=== PATIENT | female | born 1975 | race African-American/Black ===

== ENCOUNTER 2017-03-23 19:03 | Emergency (ER) | payer OTHER ==
[~2017-03-23] VITALS: Ht 170.2 cm; Wt 91.2 kg
--- NOTE | ~2017-03-23 | EKG ---
[address] [address] ELECTROCARDIOGRAM REPORT Name: JUANA VALADEZ V [id number] Admission: 03/23/17 Attend Phys: Discharge: 03/24/17 Date of : 75 Report #: [id number] THIS REPORT FOR: //name// 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
[~2017-03-23 19:03] MED LIST: ALBUTEROL2.5 MG/0.1 INH; CEFTIN 250 MG250 MG PO; CEFUROXIME500 MG PO; DIFLUCAN200 MG PO; FLOMAX0.4 MG PO; HYDROCODONE-AP1 EAC6 PO; NEXIUM40 MG PO; PREPARATION H O28 GM RC; PROCTOFOAM15 GM TP; TUCKS1 EAC1 TOP; ZESTRIL20 MG PO
[2017-03-23 21:12] LABS: URINE BLOOD NEGATIVE (Negative); URINE CLARITY CLEAR; URINE COLOR YELLOW; URINE GLUCOSE-RANDOM* NEGATIVE (Negative); URINE KETONES 1+ (Negative); URINE LEUKOCYTES-REFLEX NEGATIVE (Negative); URINE PROTEIN (DIPSTICK) 1+ (Negative); URINE SPECIFIC GRAVITY >= 1.030 (1.005-1.035)
[2017-03-23 21:15] LABS: URINE NITRITE-REFLEX POSITIVE (Negative)
[2017-03-23 21:17] LABS: ICTOTEST (BILI CONFIRMATORY) Negative (Negative); URINE BILIRUBIN NEGATIVE (Negative)
[2017-03-23 21:20] LABS: AMP/METHAMP Negative (Negative); BARBITURATES Negative (Negative); BENZODIAZEPINES Negative (Negative); COCAINE Negative (Negative); METHADONE Negative (Negative); OPIATES Negative (Negative); PCP Negative (Negative)
[2017-03-23 21:21] LABS: HYALINE CASTS 4-10 Moderate /LPF (None Seen); MUCUS 0-3 Light strn/LPF (None Seen); SQUAMOUS 4-10 Moderate /LPF (0-3); URINE RBC 0-2 Rare /HPF (0-2); URINE WBC-REFLEX 0-5 Rare /HPF (0-5)
[2017-03-23 21:22] LABS: CRYSTALS None Seen /LPF (None Seen)
[2017-03-23 23:03] LABS: ABSOLUTE NEUTROPHILS 6.8 thou/uL (1.4-8.2); BASOPHILS 0.5 % (0.0-2.0); EOSINOPHILS 2.1 % (0.0-3.0); HEMATOCRIT 27.4 % (37.0-47.0); HEMOGLOBIN 9.6 gm/dL (12.0-15.0); LYMPHOCYTES 29.5 % (24.0-44.0); MCH 48.2 pg (26.0-34.0); MCV 137.5 fL (80.0-100.0); MONOCYTES 6.4 % (1.0-8.0); PLATELET COUNT 246 thou/uL (150-400); POLYS 61.5 % (36.0-66.0); RBC 1.99 mil/uL (4.20-5.00); RDW 19.3 % (10.5-14.5); WBC 11.1 thou/uL (4.0-11.0)
[2017-03-23 23:17] LABS: ANION GAP 12 mmol/L (7-16); BUN 9 mg/dL (7-18); CALCIUM 9.4 mg/dL (8.5-10.1); CHLORIDE 100 mmol/L (98-107); CO2 26 mmol/L (21-32); CREATININE 0.8 mg/dL (0.6-1.0); GLUCOSE 89 mg/dL (74-106); SODIUM 138 mmol/L (136-145)
[2017-03-23 23:26] LABS: ALBUMIN 3.7 g/dL (3.4-5.0); LIPASE 162 U/L (73-393); MAGNESIUM 1.7 mg/dL (1.8-2.4); PHOSPHORUS 3.4 mg/dL (2.5-4.9); SGOT 89 U/L (15-37); SGPT 41 U/L (30-65); TOTAL BILIRUBIN 0.9 mg/dL (<0.1-1.0); TROPONIN-I < 0.04 ng/mL (<0.06)
[2017-03-23] MEDS ORDERED: POTASSIUM20 PO (23:58)
[2017-03-23] MEDS ORDERED: ZOFRAN ODT8 MG PO (23:59)
[2017-03-24 00:06] LABS: ANISOCYTOSIS 2+; LARGE PLATELETS RARE; MACROCYTES 2+; POLYCHROMASIA OCCASIONAL
[2017-03-24 00:21] LABS: FOLIC ACID 1.8 ng/mL (8.6-58.9)
[2017-03-24] MEDS ORDERED: ATIVAN0.5 MG PO (00:42)
[2017-03-24 00:44] VITALS: BP 99/68
[2017-10-30] MEDS ORDERED: ACCUNEB SO1.25 MG/1 INH (13:04)
[2017-11-02] MEDS ORDERED: REMERON15 MG PO (14:58)
[2017-11-02] MEDS ORDERED: PROTONIX40 M1 PO (14:58)
[2017-11-02] MEDS ORDERED: ZOFRAN ODT4 MG PO (16:29)
== END 2017-03-24 00:40 | disposition home or self-care (01) ==
LOC: ER 19:03
PROVIDERS: Emergency Medicine
DX: D53.9 Nutritional anemia, unspecified (principal); R19.7 Diarrhea, unspecified; R11.2 Nausea with vomiting, unspecified; E87.6 Hypokalemia; R20.2 Paresthesia of skin; I10 Essential (primary) hypertension; J45.909 Unspecified asthma, uncomplicated; K21.9 Gastro-esophageal reflux disease without esophagitis; E89.0 Postprocedural hypothyroidism; Z90.49 Acquired absence of other specified parts of digestive tract; F17.210 Nicotine dependence, cigarettes, uncomplicated; Z88.1 Allergy status to other antibiotic agents

== ENCOUNTER 2017-03-26 09:19 | Inpatient (IN) | payer OTHER ==
[~2017-03-26] VITALS: Ht 170.2 cm; Wt 91.2 kg
--- NOTE | ~2017-03-26 | S ---
[facility] [place] [address] SURGICAL PATH RPT PROCEDURE Name: DAILY HE V Room #: 446-P ADM IN M.R.#: [id number] Admission: 03/26/17 Date of : 75 Discharge: Report #: [id number] Path Case #: [id number] PATHOLOGY REPORT COLLECTION DATE: 03/28/2017 RECEIVED DATE: 03/28/2017 SUBMITTING PHYS: Dr. Gilmar Lopes OTHER PHYS: Dr. Arjun Murillo SPECIMEN(S) RECEIVED: A.Peripheral smear * * * * * * * * * * * * FINAL DIAGNOSIS: "Peripheral blood smear": - Moderate to severe macrocytic anemia (see comment). COMMENT: Overall, the peripheral blood has moderate to severe significantly macrocytic anemia. WBC and platelet counts are within the normal reference ranges. The WBC differential is without marked abnormalities. The etiology of the findings is unclear based entirely on slide review. Potential causes of macrocytic anemia include vitamin B12 and/or folate deficiency, liver and/or thyroid disease and primary bone marrow disorders. Correlation with the clinical history and additional laboratory data is recommended. (CLW:thomas; 03/28/2017) PATHOLOGIST: Preeti Dior M.D. REPORT ELECTRONICALLY SIGNED BY: Preeti Dior M.D. DATE/TIME: 03/28/2017 14:40 * * * * * * * * * * * * MICROSCOPIC DESCRIPTION: CBC Data (03/27/17): WBC 10,200 /uL, RBC 1.86, hemoglobin 8.8 g/dL, hematocrit 25.9%, MCV 139.5 fL, MCH 47.6 pg, MCHC 34.1 g/dL, RDW 18.8%. Platelet count 216,000 /uL. Automated white blood cell differential: segs 54.3%, lymphs 35.1%, monos 7.4%, eos 2.7%, and basos 0.5%. Peripheral Blood Smear: Cytomorphological examination of the Lovett's stained peripheral blood smear confirms the provided data. Red blood cells show moderate to severe significantly macrocytic anemia with mild anisocytosis. No significant poikilocytosis is identified. No schistocytes or microspherocytes are seen. White blood cells are borderline mildly elevated. They are predominantly segmented neutrophils and are without significant dyspoiesis or significant [address] [address] SURGICAL PATH RPT PROCEDURE Name: DAILY HE V Room #: 446-P ADM IN M.R.#: [id number] Admission: 03/26/17 Date of : 75 Discharge: Report #: [id number] Path Case #: [id number] left shift. Lymphocytes are predominantly small, round, and mature appearing with condensed chromatin and scant cytoplasm with admixed large granular lymphocytes and reactive appearing lymphocytes. Monocytes are mature. Platelets are adequate in number and mainly normal in morphology with rare larger platelets noted. (CLW:thomas; 03/28/2017) GROSS PATHOLOGY: Received are four peripheral blood smears (2 Lovett's stained and 2 unstained), all labeled Daily He V. CLINICAL HISTORY: 41-year-old woman with macrocytic anemia. Morphologic review of the peripheral blood smear is requested by the patient's physician. INITIAL CPT CODE(S): A; [place] Professional services performed by [facility] at [facility] [address], [place] [address] Technical services performed by [facility] at [address] [place] [address], [address], [place] [address]. Niya Batista [facility] [address] [place] [address] PHONE: [phone] DIRECTOR: Azeem Ellis M.D. * * * END OF REPORT * * *
--- NOTE | ~2017-03-26 | HC ---
[facility] [place] [address] CONSULTATION Name: JUANA VALADEZ V Room #: 446-P ADM IN M.R.#: [id number] Admission: 03/26/17 Attend Phys: Gilmar Lopes MD Discharge: Date of : 75 Report #: [id number] THIS REPORT FOR: //name// CC: NO PCP Sanjay Lopes PHYSICIAN REQUESTING CONSULT: Dr. Lopes REASON FOR CONSULT: Macrocytic anemia. PHYSICIAN PROVIDING CONSULT: Dr. Arjun Murillo HISTORY OF PRESENT ILLNESS: The patient is a very pleasant 41-year-old female who was examined in the hospital who was admitted for evaluation of dysesthesias of about maybe several months, maybe a year on her feet, may be 2-3 weeks on her face and hands. She was admitted here and found to have hemoglobin of 10 with an MCV higher to 130 and folic acid less than 2. B12 was normal and iron will be checked. She had no previous knowledge of anemia, though she had possibly been low in the past, but she developed cold in the past. Notably labs here at this hospital with MCVs of 116 back in 07/2015, 127 in 12/2016 and then 137.5 on admission here. About the same time, her hemoglobin has been 9.6, white count 11.1 and platelets of 246. Differential without any acute forms, though they were described as 2+ macrocytosis, occasional polychromasia, 2+ anisocytosis and large platelets. Other lab lately include a total bili of 1.2, suggested this is not hemolytic anemia. Normal transaminase, except for an AST that was elevated recently at 104. It is down to 89. ALT has been unremarkable recently. Albumin is 3.7. Alcohol level was less than 10. White blood count as mentioned is 10.2. Hemoglobin recently 8.8. RDW has been 18.8. Stable for quite some time. TSH was 2.981. Folate was 1.8. Vitamin B12 1128. 25-hydroxy vitamin D was 4.8. Urinalysis was positive for nitrites, squamous cells and bacteria. Imaging recently included an MRI of the head that is unremarkable. The patient had CT angio chest and pelvis back in December without any lymphadenopathy. Spleen was felt very mildly enlarged at 13.7 cm. The patient has not really had any headaches, fevers or chills. Has had some dyspepsia, but that has been there for number of years and has been on Nexium. Does have occasionally I think some rare emesis. No blood in urine or stool. No swallowing troubles, though she does have occasionally heartburn. Has lost about 40 pounds in the last year. She blames it on poor nutrition. She had diarrhea about 2 weeks ago that resolved. She had left kidney stone back in December. She has not had any arm or ankle swelling or skin rash. PAST MEDICAL HISTORY: Notable for the tubal ligation and also uterine ablation in the past in about 2012 for heavy periods when her last period was. 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. 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 She up until about 2 weeks ago had drank a fifth of vodka every 3 days. Smokes about a pack a day for [address]. FAMILY HISTORY: Father had anemia and also PE. Mother, no specific illnesses. A brother alive and well. Three children alive and well. Son goes to local [employer] and studying to be in business and sports. MEDICATIONS: At this time in the hospital currently include vitamin D 50,000 units one time, which I ordered; flu vaccine; Lactobacillus; vitamin; ceftriaxone antibiotic; pantoprazole 40 daily; Lovenox 30 daily; oxycodone p.r.n.; B12 1000 mcg daily subcutaneously; gabapentin 100 t.i.d.; MiraLax 17 g daily; nitroglycerin p.r.n. and Zofran p.r.n. She also was receiving IV fluids with thiamine and folic acid and multivitamins daily. PHYSICAL EXAMINATION: GENERAL: The patient appears her stated age. VITAL SIGNS: Height is 5 feet 7, 170 cm. Weight is 201 pounds, 91.2 kilograms. Blood pressure is 93/60, respirations 14, pulse 70. Afebrile at 98.1. MOOD: She is relaxed and pleasant. NEUROLOGIC: Moving all extremities. Does have dysesthesias as described on her face, hands and feet. LYMPHATICS: No enlarged lymph nodes in the supraclavicular, cervical, axillary or inguinal region. HEART: Regular rate. LUNGS: Clear to auscultate with symmetric respirations. ABDOMEN: No masses. Slightly obese. EXTREMITIES: Without clubbing, cyanosis or edema. ASSESSMENT AND PLAN: 1. Macrocytic anemia with folate deficiency. We will also check iron level and a peripheral smear. Will take several weeks/months for this to improve significantly given the turnover in red blood cells. Most likely this is related to her poor diet and alcohol consumption in the past. Agree with folate and B12 supplementation. 2. Vitamin D deficiency. The patient is begun on vitamin D 50,000. Should do this weekly for 12 weeks, then repeat level. 3. History of kidney stone, not a recent issue. 4. Dysesthesias. We will defer to Neurology additional work I believe. The patient said she is having an MRI later today, was pending. 5. History of alcohol misuse, encourage avoidance. [facility] [address] [place] [address] CONSULTATION Name: ALLYSONJUANA V Room #: 446-P [facility] IN M.R.#: [id number] Admission: 03/26/17 Attend Phys: Gilmar Lopes MD Discharge: Date of : 75 Report #: [id number] 6. Followup. The patient could probably follow up with her primary care physician and we would need to be involved if her macrocytosis does not improve. <ELECTRONICALLY SIGNED> By: Arjun Murillo MD 03/28/17 0907 09 1038 Arjun Murillo MD /nt
--- NOTE | ~2017-03-26 | HC ---
[facility] [place] [address] CONSULTATION Name: JUANA VALADEZ V Room #: 446-P [facility] IN .R.#: [id number] Admission: 03/26/17 Attend Phys: Gilmar Lopes MD Discharge: 03/29/17 Date of : 75 Report #: [id number] THIS REPORT FOR: //name// CC: NO PCP Gilmar Lopes DATE OF SERVICE: 03/26/2017 HISTORY OF PRESENT ILLNESS: This is a 41-year-old female patient who was evaluated by me for paresthesias in all 4 extremities including the left side of the face. She had paresthesias in both hands for a few years. It started spontaneously. 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 About 2 weeks ago, she noticed paresthesias on the left side of the face and the paresthesias in the hand became worse and it involved the whole hand now and she also has developed paresthesias in both lower extremities. She used to drink at least 2 alcoholic drinks a day, that was till 2 weeks ago. Then, she stopped drinking alcohol. At that time, she was admitted with a kidney stone as I understand and she was treated accordingly and now she is admitted with urinary tract infection. Throughout this time, her nutrition has been poor. REVIEW OF SYSTEMS: Positive for bladder problem recently including a kidney stone. Her vitamin B12 is 1128, folic acid is somewhat low at 1.8. She still has nausea, vomiting and poor appetite. Record indicates she has a history of hemorrhoids in the past. This was a relevant 14-point review of system. PAST MEDICAL HISTORY: Positive for tubal ligation as well as uterine ablation in 2013, that was her last period. FAMILY HISTORY: Negative for early age stroke. SOCIAL HISTORY: Until about 2 weeks ago she used to drink pretty significant amount of alcohol. She also has a history of smoking. PHYSICAL EXAMINATION: Indicate she is alert. She is responsive. She can follow simple command. Her speech, concentration, fund of knowledge and memory is at her baseline. Cranial nerve examination 2-12 mostly looks unremarkable. She took a little longer to do the position sense, but I think it is present. She does appear to be weak in generalized fashion. Her reflexes are diminished in all 4 extremities. She does have some abnormality of [id number]-ny-sdux. [id number]-ok-osfh she does relatively good, but I think some abnormality is there. She said she has difficulty with walking because of ataxia. I could not look at the fundus. She is reasonably developed individual and does not have any dysmorphic features of eyes, ears and face. Her pulses are palpable. Cardiac examination shows no atrial fibrillation or respiratory difficulty. Respiratory examination is unremarkable. Blood pressure is 107/70, respiration is 18, pulse [facility] [address] [place] [address] CONSULTATION Name: JUANA VALADEZ V Room #: 446-P DIS IN M.R.#: [id number] Admission: 03/26/17 Attend Phys: Gilmar Lopes MD Discharge: 03/29/17 Date of : 75 Report #: [id number] is 82, temperature is 98.1. LABORATORY DATA: MCV is increased in this patient, MCH is increased, RBC is diminished. She did have a CT scan a few days ago and that was unremarkable. IMPRESSION: Paresthesias in an above described fashion. This may be related to her neuropathy, which she may be developing secondary to thiamine deficiency, which can be both because of vomiting as well as her significant alcohol use. We need to exclude any SCHOOL BUS OPERATOR pathology, especially in the posterior fossa and for that she needs an MRI. RECOMMENDATIONS: I discussed the situation with the patient and the admitting doctor. They have already started the patient on banana bag, which I agree. We will check an MRI just to make sure no other etiology is going on. We will see how she does with banana bag and see if the MRI shows anything and decide about the further management according to that. Thank you very much for this referral. <ELECTRONICALLY SIGNED> By: Marek Ho MD 04/04/172008 1635 2209 Marek Ho MD /nt
[~2017-03-26 09:19] MED LIST changes: +ATIVAN0.5 MG PO; +POTASSIUM20 PO; +ZOFRAN ODT8 MG PO
[2017-03-26 09:57] VITALS: BP 107/70
[2017-03-26 11:00] LABS: ABSOLUTE NEUTROPHILS 6.3 thou/uL (1.4-8.2); BASOPHILS 0.6 % (0.0-2.0); HEMATOCRIT 29.8 % (37.0-47.0); HEMOGLOBIN 10.3 gm/dL (12.0-15.0); LYMPHOCYTES 25.8 % (24.0-44.0); MCHC 34.5 g/dL (28.0-37.0); MONOCYTES 7.5 % (1.0-8.0); PLATELET COUNT 266 thou/uL (150-400); POLYS 64.1 % (36.0-66.0); RBC 2.14 mil/uL (4.20-5.00); RDW 19.2 % (10.5-14.5); WBC 9.8 thou/uL (4.0-11.0)
[2017-03-26 11:16] LABS: CALCIUM 9.7 mg/dL (8.5-10.1); CREATININE 0.8 mg/dL (0.6-1.0); POTASSIUM 3.9 mmol/L (3.5-5.1)
[2017-03-26 12:05] LABS: URINE BILIRUBIN 1+ (Negative); URINE BLOOD NEGATIVE (Negative); URINE CLARITY CLEAR; URINE COLOR YELLOW; URINE GLUCOSE-RANDOM* NEGATIVE (Negative); URINE KETONES 1+ (Negative); URINE NITRITE-REFLEX NEGATIVE (Negative); URINE PROTEIN (DIPSTICK) NEGATIVE (Negative)
[2017-03-26 12:08] LABS: URINE LEUKOCYTES-REFLEX 1+ (Negative)
[2017-03-26 12:09] LABS: ICTOTEST (BILI CONFIRMATORY) Negative (Negative)
[2017-03-26 12:17] LABS: URINE WBC-REFLEX 6-15 Few /HPF (0-5)
[2017-03-26 12:18] LABS: SQUAMOUS 4-10 Moderate /LPF (0-3)
[2017-03-26 12:19] LABS: BACTERIA-REFLEX 1-9 Few /HPF (None Seen); CASTS None Seen /LPF (None Seen); CRYSTALS None Seen /LPF (None Seen); URINE RBC 0-2 Rare /HPF (0-2)
[2017-03-26 18:15] VITALS: BP 114/68
[2017-03-26 19:39] VITALS: BP 115/72
[2017-03-27 00:06] LABS: 25-HYDROXY TOTAL 4.8 ng/mL (30.0-100.0)
[2017-03-27 03:29] VITALS: BP 86/51
[2017-03-27 04:12] LABS: ABSOLUTE NEUTROPHILS 5.5 thou/uL (1.4-8.2); BASOPHILS 0.5 % (0.0-2.0); EOSINOPHILS 2.7 % (0.0-3.0); HEMATOCRIT 25.9 % (37.0-47.0); HEMOGLOBIN 8.8 gm/dL (12.0-15.0); LYMPHOCYTES 35.1 % (24.0-44.0); MCH 47.6 pg (26.0-34.0); MCHC 34.1 g/dL (28.0-37.0); MCV 139.5 fL (80.0-100.0); MONOCYTES 7.4 % (1.0-8.0); PLATELET COUNT 216 thou/uL (150-400); POLYS 54.3 % (36.0-66.0); RBC 1.86 mil/uL (4.20-5.00); RDW 18.8 % (10.5-14.5); WBC 10.2 thou/uL (4.0-11.0)
[2017-03-27 04:18] LABS: CREATININE 0.7 mg/dL (0.6-1.0); MAGNESIUM 1.6 mg/dL (1.8-2.4); POTASSIUM 3.6 mmol/L (3.5-5.1)
[2017-03-27 06:36] LABS: ANISOCYTOSIS 2+; MACROCYTES 3+; POLYCHROMASIA 1+
[2017-03-27 07:35] VITALS: BP 93/60
[2017-03-27 16:00] VITALS: BP 100/56
[2017-03-27 19:09] VITALS: BP 98/65
[2017-03-28 03:11] VITALS: BP 96/62
[2017-03-28 05:35] LABS: % SATURATION 14 % (20-39); IRON 28 ug/dL (50-170); TIBC 194 ug/dL (250-450)
[2017-03-28 07:50] VITALS: BP 84/53
[2017-03-28 15:15] VITALS: BP 102/63
[2017-03-28 20:00] VITALS: BP 99/58
[2017-03-29 04:00] VITALS: BP 87/56
[2017-03-29 04:24] LABS: ANION GAP 8 mmol/L (7-16); BUN 8 mg/dL (7-18); CALCIUM 8.9 mg/dL (8.5-10.1); CHLORIDE 104 mmol/L (98-107); CO2 27 mmol/L (21-32); CREATININE 0.6 mg/dL (0.6-1.0); GLUCOSE 109 mg/dL (74-106); MAGNESIUM 1.5 mg/dL (1.8-2.4); POTASSIUM 3.9 mmol/L (3.5-5.1); SODIUM 139 mmol/L (136-145)
[2017-03-29 04:25] LABS: ABSOLUTE NEUTROPHILS 5.5 thou/uL (1.4-8.2); BASOPHILS 0.5 % (0.0-2.0); EOSINOPHILS 3.8 % (0.0-3.0); HEMATOCRIT 25.3 % (37.0-47.0); HEMOGLOBIN 8.6 gm/dL (12.0-15.0); LYMPHOCYTES 35.1 % (24.0-44.0); MCHC 34.2 g/dL (28.0-37.0); MCV 137.5 fL (80.0-100.0); MONOCYTES 8.4 % (1.0-8.0); PLATELET COUNT 213 thou/uL (150-400); POLYS 52.2 % (36.0-66.0); RBC 1.84 mil/uL (4.20-5.00); RDW 18.2 % (10.5-14.5); WBC 10.5 thou/uL (4.0-11.0)
[2017-03-29 05:11] LABS: ANISOCYTOSIS 2+; MACROCYTES 2+; POLYCHROMASIA OCCASIONAL
[2017-03-29 09:50] VITALS: BP 100/62
[2017-03-29 09:52] LABS: CHOLESTEROL 107 mg/dL (<200); HDL CHOLESTEROL 28 mg/dL (>40); LDL CHOLESTEROL 59 mg/dL (<100); TC:HDL 3.8 Ratio (Not establshd); TRIGLYCERIDE 103 mg/dL (<150); VLDL 21 mg/dL (<40)
[2017-03-29] MEDS ORDERED: ERGOCALCIF50000 UNIT PO (10:19)
[2017-03-29] MEDS ORDERED: FOLIC ACID 1 MG1 MG PO (10:19)
[2017-03-29] MEDS ORDERED: PRENATAL PO (10:19)
[2017-03-29] MEDS ORDERED: MIRALAX17 GM PO (10:19)
[2017-03-29 11:59] VITALS: BP 100/62
[2017-03-29 14:08] LABS: IgA 445 mg/dL (87-352); IgG 1164 mg/dL (700-1600); IgM 113 mg/dL (26-217)
[2017-10-30] MEDS ORDERED: ACCUNEB SO1.25 MG/1 INH (13:04)
[2017-11-02] MEDS ORDERED: PROTONIX40 M1 PO (14:58)
[2017-11-02] MEDS ORDERED: REMERON15 MG PO (14:58)
[2017-11-02] MEDS ORDERED: ZOFRAN ODT4 MG PO (16:29)
== END 2017-03-29 14:30 | disposition home or self-care (01) | DRG 689 ==
LOC: ER 09:19 → EROBS 13:27 → 4S 13:27 → ENTRNSPT 03-29 13:31 → EDTRNSPTSTS 03-29 13:35 → 4S 03-29 14:30
PROVIDERS: Emergency Medicine; Internal Medicine; Internal Medicine Hematology & Oncology; Nurse Practitioner; Psychiatry & Neurology Neuromuscular Medicine
DX: N39.0 Urinary tract infection, site not specified (principal); E43 Unspecified severe protein-calorie malnutrition; J45.909 Unspecified asthma, uncomplicated; I10 Essential (primary) hypertension; K21.9 Gastro-esophageal reflux disease without esophagitis; E89.0 Postprocedural hypothyroidism; E53.8 Deficiency of other specified B group vitamins; F17.210 Nicotine dependence, cigarettes, uncomplicated; D53.9 Nutritional anemia, unspecified; E55.9 Vitamin D deficiency, unspecified; G62.9 Polyneuropathy, unspecified; Z87.442 Personal history of urinary calculi; Z79.899 Other long term (current) drug therapy; Z88.1 Allergy status to other antibiotic agents; Z28.21 Immunization not carried out because of patient refusal; Z86.718 Personal history of other venous thrombosis and embolism; Z87.01 Personal history of pneumonia (recurrent); Z68.31 Body mass index [BMI] 31.0-31.9, adult
CPT/HCPCS: 10195

== ENCOUNTER 2017-08-14 19:41 | Inpatient (IN) | payer OTHER ==
[~2017-08-14] VITALS: Ht 170.2 cm; Wt 75.7 kg
[~2017-08-14 19:41] MED LIST changes: +ERGOCALCIF50000 UNIT PO; +FOLIC ACID 1 MG1 MG PO; +MIRALAX17 GM PO; +PRENATAL PO
[2017-08-14 20:27] LABS: URINE BILIRUBIN 3+ (Negative); URINE BLOOD NEGATIVE (Negative); URINE CLARITY SL CLOUDY; URINE COLOR ORANGE; URINE GLUCOSE-RANDOM* NEGATIVE (Negative); URINE KETONES TRACE (Negative); URINE PROTEIN (DIPSTICK) 2+ (Negative); URINE SPECIFIC GRAVITY 1.025 (1.005-1.035)
[2017-08-14 20:30] LABS: URINE LEUKOCYTES-REFLEX 2+ (Negative); URINE NITRITE-REFLEX POSITIVE (Negative)
[2017-08-14 20:31] VITALS: BP 105/73
[2017-08-14 20:33] LABS: ICTOTEST (BILI CONFIRMATORY) Positive (Negative)
[2017-08-14] MEDS ORDERED: LISINOPRIL20 MG PO (20:35)
[2017-08-14] MEDS ORDERED: NEXIUM40 MG PO (20:35)
[2017-08-14 20:36] LABS: SQUAMOUS >10 Many /LPF (0-3); YEAST-REFLEX Present (None Seen)
[2017-08-14] MEDS ORDERED: NEPHROCAPS SOFT1 CAP PO (20:36)
[2017-08-14 20:37] LABS: CASTS None Seen /LPF (None Seen); CRYSTALS None Seen /LPF (None Seen); URINE WBC-REFLEX 6-15 Few /HPF (0-5)
[2017-08-14 20:38] LABS: URINE RBC None Seen /HPF (0-2)
[2017-08-14 21:13] LABS: AMP/METHAMP Negative (Negative); BARBITURATES Negative (Negative); BENZODIAZEPINES Negative (Negative); COCAINE Negative (Negative); METHADONE Negative (Negative); OPIATES Negative (Negative); PCP Negative (Negative)
[2017-08-14 21:48] LABS: HEMATOCRIT 33.5 % (37.0-47.0); HEMOGLOBIN 11.4 gm/dL (12.0-15.0); MCH 39.3 pg (26.0-34.0); MCV 115.5 fL (80.0-100.0); PLATELET COUNT 130 thou/uL (150-400); RDW 14.1 % (10.5-14.5); WBC 9.5 thou/uL (4.0-11.0)
[2017-08-14 21:57] LABS: CALCIUM 8.7 mg/dL (8.5-10.1); POTASSIUM 3.2 mmol/L (3.5-5.1)
[2017-08-14 22:03] LABS: ALBUMIN 2.1 g/dL (3.4-5.0); MAGNESIUM 1.3 mg/dL (1.8-2.4); TOTAL BILIRUBIN 1.2 mg/dL (<0.1-1.0); TOTAL PROTEIN 7.4 g/dL (6.4-8.2)
[2017-08-14 22:09] LABS: ANISOCYTOSIS 1+; POLYCHROMASIA OCCASIONAL
[2017-08-15] VITALS: BP 90/61
[2017-08-15 02:48] LABS: HEMATOCRIT 32.5 % (37.0-47.0); HEMOGLOBIN 10.8 gm/dL (12.0-15.0); MCH 38.9 pg (26.0-34.0); MCHC 33.2 g/dL (28.0-37.0); MCV 117.4 fL (80.0-100.0); RBC 2.77 mil/uL (4.20-5.00); RDW 14.6 % (10.5-14.5); WBC 8.5 thou/uL (4.0-11.0)
[2017-08-15 03:00] VITALS: BP 99/66
[2017-08-15 03:01] LABS: CALCIUM 8.5 mg/dL (8.5-10.1); CREATININE 0.9 mg/dL (0.6-1.0); MAGNESIUM 1.4 mg/dL (1.8-2.4); PHOSPHORUS 2.8 mg/dL (2.5-4.9); POTASSIUM 3.2 mmol/L (3.5-5.1)
[2017-08-15 04:36] LABS: FOLIC ACID 30.9 ng/mL (8.6-58.9)
[2017-08-15 07:25] VITALS: BP 100/67
[2017-08-15 09:16] LABS: MAGNESIUM 1.5 mg/dL (1.8-2.4); POTASSIUM 3.7 mmol/L (3.5-5.1)
[2017-08-15 16:23] VITALS: BP 100/66
[2017-08-15 20:00] VITALS: BP 97/65
[2017-08-16 04:49] VITALS: BP 91/61
[2017-08-16 06:51] LABS: CALCIUM 7.6 mg/dL (8.5-10.1); CREATININE 0.9 mg/dL (0.6-1.0); MAGNESIUM 1.4 mg/dL (1.8-2.4); POTASSIUM 3.5 mmol/L (3.5-5.1)
[2017-08-16 08:43] VITALS: BP 102/64
[2017-08-16] MEDS ORDERED: FLAGYL500 MG PO (09:34)
[2017-08-16] MEDS ORDERED: PEPCID20 MG PO (09:34)
[2017-08-16] MEDS ORDERED: MAGNESIUM400 MG PO (09:34)
[2017-08-16] MEDS ORDERED: TRAMADOL 50 MG50 MG PO (09:34)
[2017-08-16] MEDS ORDERED: ZOFRAN4 MG PO (09:39)
[2017-08-16 11:11] VITALS: BP 102/64
[2017-08-16 14:08] LABS: NEISSERIA GONORRHEA-PCR Negative (Negative)
== END 2017-08-16 12:30 | disposition home or self-care (01) | DRG 690 ==
LOC: ER 19:41 → 4E 08-15 00:14 → EROBS 08-15 00:14 → 4E 08-15 03:05 → ENTRNSPT 08-16 12:17 → EDTRNSPTSTS 08-16 12:22 → 4E 08-16 12:30
PROVIDERS: Emergency Medicine; Hospitalist; Nurse Practitioner Family; Physician Assistant
DX: N39.0 Urinary tract infection, site not specified (principal); F10.239 Alcohol dependence with withdrawal, unspecified; E46 Unspecified protein-calorie malnutrition; J45.909 Unspecified asthma, uncomplicated; I10 Essential (primary) hypertension; K21.9 Gastro-esophageal reflux disease without esophagitis; E89.0 Postprocedural hypothyroidism; E87.6 Hypokalemia; E53.8 Deficiency of other specified B group vitamins; E83.42 Hypomagnesemia; R20.2 Paresthesia of skin; Z20.2 Contact with and (suspected) exposure to infections with a predominantly sexual mode of transmission; F17.210 Nicotine dependence, cigarettes, uncomplicated; D53.9 Nutritional anemia, unspecified; B96.89 Other specified bacterial agents as the cause of diseases classified elsewhere; Z90.49 Acquired absence of other specified parts of digestive tract; Z88.1 Allergy status to other antibiotic agents; Z87.442 Personal history of urinary calculi; Z68.26 Body mass index [BMI] 26.0-26.9, adult; Z79.899 Other long term (current) drug therapy
CPT/HCPCS: 10084

== ENCOUNTER 2017-11-13 20:19 | Inpatient (IN) | payer OTHER ==
[~2017-11-13] VITALS: Ht 170.2 cm; Wt 83.9 kg
[~2017-11-13 20:19] MED LIST changes: +ACCUNEB SO1.25 MG/1 INH; +FLAGYL500 MG PO; +LISINOPRIL20 MG PO; +MAGNESIUM400 MG PO; +NEPHROCAPS SOFT1 CAP PO; +PEPCID20 MG PO; +PROTONIX40 M1 PO; +REMERON15 MG PO; +TRAMADOL 50 MG50 MG PO; +ZOFRAN ODT4 MG PO; +ZOFRAN4 MG PO
[2017-11-13 20:22] VITALS: BP 115/79
[2017-11-13 21:27] LABS: ABSOLUTE NEUTROPHILS 5.3 thou/uL (1.4-8.2); BASOPHILS 1.3 % (0.0-2.0); EOSINOPHILS 2.2 % (0.0-3.0); HEMATOCRIT 34.4 % (37.0-47.0); HEMOGLOBIN 12.2 gm/dL (12.0-15.0); LYMPHOCYTES 43.3 % (24.0-44.0); MCH 38.5 pg (26.0-34.0); MCHC 35.5 g/dL (28.0-37.0); MCV 108.3 fL (80.0-100.0); MONOCYTES 5.3 % (1.0-8.0); PLATELET COUNT 238 thou/uL (150-400); POLYS 47.9 % (36.0-66.0); RBC 3.18 mil/uL (4.20-5.00); RDW 13.9 % (10.5-14.5); WBC 11.1 thou/uL (4.0-11.0)
[2017-11-13 21:31] LABS: ANION GAP 7 mmol/L (7-16); BUN 9 mg/dL (7-18); CALCIUM 9.1 mg/dL (8.5-10.1); CHLORIDE 104 mmol/L (98-107); CO2 28 mmol/L (21-32); CREATININE 1.1 mg/dL (0.6-1.0); GLUCOSE 97 mg/dL (74-106); POTASSIUM 4.2 mmol/L (3.5-5.1); SODIUM 139 mmol/L (136-145)
[2017-11-13 21:37] LABS: DIRECT BILIRUBIN < 0.1 mg/dL (<0.1-0.3); LIPASE 295 U/L (73-393); SGOT 56 U/L (15-37); SGPT 21 U/L (30-65); TOTAL BILIRUBIN 0.6 mg/dL (<0.1-1.0); TOTAL PROTEIN 8.4 g/dL (6.4-8.2)
[2017-11-13 21:43] LABS: APTT 37.3 Seconds (24.5-32.8); INR 1.1; PROTIME 11.2 Seconds (9.3-11.4)
[2017-11-13 21:57] LABS: MACROCYTES 2+; POLYCHROMASIA 1+
[2017-11-13 22:46] VITALS: BP 107/69
[2017-11-14 04:13] VITALS: BP 91/62
[2017-11-14 08:46] VITALS: BP 98/68
[2017-11-14 15:40] VITALS: BP 93/56
[2017-11-14 19:40] VITALS: BP 78/44
[2017-11-14 23:52] VITALS: BP 95/64
[2017-11-15 03:40] VITALS: BP 82/46
[2017-11-15 04:35] LABS: URINE BILIRUBIN 1+ (Negative); URINE BLOOD NEGATIVE (Negative); URINE GLUCOSE-RANDOM* NEGATIVE (Negative); URINE KETONES NEGATIVE (Negative); URINE LEUKOCYTES-REFLEX NEGATIVE (Negative); URINE NITRITE-REFLEX NEGATIVE (Negative); URINE PROTEIN (DIPSTICK) TRACE (Negative); URINE SPECIFIC GRAVITY >= 1.030 (1.005-1.035)
[2017-11-15 04:41] LABS: ICTOTEST (BILI CONFIRMATORY) Positive (Negative); URINE CLARITY CLOUDY; URINE COLOR BROWN
[2017-11-15 04:46] LABS: CASTS None Seen /LPF (None Seen); MUCUS 4-6 Moderate strn/LPF (None Seen); SQUAMOUS >10 Many /LPF (0-3)
[2017-11-15 04:47] LABS: AMORPHOUS URATES Many /LPF (None Seen); BACTERIA-REFLEX None Seen /HPF (None Seen); CRYSTALS None Seen /LPF (None Seen); URINE RBC None Seen /HPF (0-2); URINE WBC-REFLEX None Seen /HPF (0-5)
[2017-11-15 05:53] LABS: ABSOLUTE NEUTROPHILS 3.2 thou/uL (1.4-8.2); EOSINOPHILS 1.7 % (0.0-3.0); HEMATOCRIT 27.3 % (37.0-47.0); LYMPHOCYTES 48.9 % (24.0-44.0); MCH 37.6 pg (26.0-34.0); MCHC 35.1 g/dL (28.0-37.0); MCV 107.3 fL (80.0-100.0); MONOCYTES 5.8 % (1.0-8.0); PLATELET COUNT 172 thou/uL (150-400); POLYS 42.6 % (36.0-66.0); RBC 2.54 mil/uL (4.20-5.00); RDW 13.4 % (10.5-14.5); WBC 7.5 thou/uL (4.0-11.0)
[2017-11-15 06:01] LABS: CALCIUM 8.5 mg/dL (8.5-10.1); CREATININE 0.9 mg/dL (0.6-1.0); POTASSIUM 3.8 mmol/L (3.5-5.1)
[2017-11-15 06:02] LABS: HEMOGLOBIN 9.6 gm/dL (12.0-15.0)
[2017-11-15 07:56] VITALS: BP 82/52
[2017-11-15 15:30] VITALS: BP 94/64
[2017-11-15 20:05] VITALS: BP 95/60
[2017-11-16 05:10] VITALS: BP 91/56
[2017-11-16 06:13] LABS: ABSOLUTE NEUTROPHILS 3.5 thou/uL (1.4-8.2); BASOPHILS 0.6 % (0.0-2.0); CALCIUM 8.6 mg/dL (8.5-10.1); EOSINOPHILS 2.2 % (0.0-3.0); HEMATOCRIT 26.5 % (37.0-47.0); HEMOGLOBIN 9.4 gm/dL (12.0-15.0); LYMPHOCYTES 45.3 % (24.0-44.0); MCH 37.8 pg (26.0-34.0); MCHC 35.4 g/dL (28.0-37.0); MCV 106.7 fL (80.0-100.0); MONOCYTES 6.2 % (1.0-8.0); PLATELET COUNT 174 thou/uL (150-400); POLYS 45.7 % (36.0-66.0); POTASSIUM 3.8 mmol/L (3.5-5.1); RBC 2.48 mil/uL (4.20-5.00); RDW 13.4 % (10.5-14.5); WBC 7.6 thou/uL (4.0-11.0)
[2017-11-16 07:48] LABS: ANISOCYTOSIS SLIGHT; MACROCYTES 1+
[2017-11-16 08:00] VITALS: BP 82/52
[2017-11-16] MEDS ORDERED: ALDACTONE50 MG PO (09:11)
[2017-11-16 15:15] VITALS: BP 83/53
[2017-11-16 21:05] VITALS: BP 113/80
[2017-11-17 07:28] VITALS: BP 93/63
[2017-11-17] MEDS ORDERED: OXYCODONE HCL 55 MG PO (09:44)
[2017-11-17 11:40] VITALS: BP 93/63
[2017-11-17] MEDS ORDERED: LASIX 20 MG TAB20 MG PO (12:01)
== END 2017-11-17 12:22 | disposition home or self-care (01) | DRG 441 ==
LOC: ER 20:19 → 4W 22:05 → EROBS 22:05 → 4W 22:54 → SICU 11-16 18:26
PROVIDERS: Emergency Medicine; Hospitalist; Internal Medicine Gastroenterology
PROC: 0W9G3ZZ Drainage of Peritoneal Cavity, Percutaneous Approach (ICD-10-PCS; principal; 2017-11-14)
PROC: 0FB13ZX Excision of Right Lobe Liver, Percutaneous Approach, Diagnostic (ICD-10-PCS; 2017-11-16)
PROC: B51T1ZZ Fluoroscopy of Portal and Splanchnic Veins using Low Osmolar Contrast (ICD-10-PCS; 2017-11-16)
DX: K72.90 Hepatic failure, unspecified without coma (principal); E43 Unspecified severe protein-calorie malnutrition; K70.31 Alcoholic cirrhosis of liver with ascites; J45.909 Unspecified asthma, uncomplicated; I10 Essential (primary) hypertension; K21.9 Gastro-esophageal reflux disease without esophagitis; E05.90 Thyrotoxicosis, unspecified without thyrotoxic crisis or storm; F32.9 Major depressive disorder, single episode, unspecified; G62.9 Polyneuropathy, unspecified; E66.9 Obesity, unspecified; F10.10 Alcohol abuse, uncomplicated; D53.9 Nutritional anemia, unspecified; K70.11 Alcoholic hepatitis with ascites; E89.0 Postprocedural hypothyroidism; F17.210 Nicotine dependence, cigarettes, uncomplicated; Z68.29 Body mass index [BMI] 29.0-29.9, adult; Z90.49 Acquired absence of other specified parts of digestive tract; Z87.442 Personal history of urinary calculi; Z79.899 Other long term (current) drug therapy; Z88.1 Allergy status to other antibiotic agents
CPT/HCPCS: 10040; 15002

== ENCOUNTER 2018-03-03 19:26 | Emergency (ER) | payer OTHER ==
[~2018-03-03] VITALS: Ht 170.2 cm; Wt 72.6 kg
[~2018-03-03 19:26] MED LIST changes: +ALDACTONE50 MG PO; +LASIX 20 MG TAB20 MG PO; +OXYCODONE HCL 55 MG PO
[2018-03-03 19:52] LABS: URINE BILIRUBIN NEGATIVE (Negative); URINE BLOOD NEGATIVE (Negative); URINE CLARITY CLEAR; URINE COLOR YELLOW; URINE GLUCOSE-RANDOM* NEGATIVE (Negative); URINE KETONES NEGATIVE (Negative); URINE NITRITE-REFLEX NEGATIVE (Negative); URINE PROTEIN (DIPSTICK) NEGATIVE (Negative)
[2018-03-03 19:53] LABS: URINE LEUKOCYTES-REFLEX TRACE (Negative); URINE UROBILINOGEN 0.2 E.U./dl (0.2-1.0)
[2018-03-03 20:07] LABS: ABSOLUTE NEUTROPHILS 4.5 thou/uL (1.4-8.2); BASOPHILS 0.5 % (0.0-2.0); HEMOGLOBIN 12.8 gm/dL (12.0-15.0); LYMPHOCYTES 44.8 % (24.0-44.0); MCH 34.6 pg (26.0-34.0); MCHC 35.4 g/dL (28.0-37.0); MCV 97.6 fL (80.0-100.0); MONOCYTES 4.4 % (1.0-8.0); PLATELET COUNT 201 thou/uL (150-400); POLYS 35.3 % (36.0-66.0); RBC 3.69 mil/uL (4.20-5.00); RDW 13.4 % (10.5-14.5); WBC 12.9 thou/uL (4.0-11.0)
[2018-03-03 20:14] LABS: CALCIUM 9.9 mg/dL (8.5-10.1); CREATININE 2.1 mg/dL (0.6-1.0); POTASSIUM 3.7 mmol/L (3.5-5.1)
[2018-03-03 20:20] LABS: ALBUMIN 3.5 g/dL (3.4-5.0); TOTAL BILIRUBIN 0.5 mg/dL (<0.1-1.0); TOTAL PROTEIN 8.6 g/dL (6.4-8.2)
[2018-03-03] MEDS ORDERED: REGLAN 10 MG TA10 MG PO (21:37)
[2018-03-03 21:59] VITALS: BP 96/66
== END 2018-03-03 21:59 | disposition home or self-care (01) ==
LOC: ER 19:26
PROVIDERS: Physician Assistant
DX: K74.60 Unspecified cirrhosis of liver (principal); F17.210 Nicotine dependence, cigarettes, uncomplicated; J45.909 Unspecified asthma, uncomplicated; I10 Essential (primary) hypertension; K21.9 Gastro-esophageal reflux disease without esophagitis; Z90.89 Acquired absence of other organs; E03.9 Hypothyroidism, unspecified; G62.9 Polyneuropathy, unspecified; Z90.49 Acquired absence of other specified parts of digestive tract; Z88.1 Allergy status to other antibiotic agents; Z87.442 Personal history of urinary calculi

== ENCOUNTER 2018-03-16 19:47 | Emergency (ER) | payer OTHER ==
[~2018-03-16] VITALS: Ht 170.2 cm; Wt 72.6 kg
[~2018-03-16 19:47] MED LIST changes: +REGLAN 10 MG TA10 MG PO
[2018-03-16 21:11] LABS: ABSOLUTE NEUTROPHILS 3.7 thou/uL (1.4-8.2); BASOPHILS 0.7 % (0.0-2.0); EOSINOPHILS 4.4 % (0.0-3.0); HEMATOCRIT 35.7 % (37.0-47.0); HEMOGLOBIN 12.8 gm/dL (12.0-15.0); LYMPHOCYTES 51.3 % (24.0-44.0); MCHC 35.8 g/dL (28.0-37.0); MCV 97.8 fL (80.0-100.0); MONOCYTES 4.8 % (1.0-8.0); PLATELET COUNT 164 thou/uL (150-400); POLYS 38.8 % (36.0-66.0); RBC 3.65 mil/uL (4.20-5.00); RDW 13.5 % (10.5-14.5); WBC 9.6 thou/uL (4.0-11.0)
[2018-03-16 21:20] LABS: POTASSIUM 4.7 mmol/L (3.5-5.1)
[2018-03-16 21:26] LABS: ALBUMIN 3.5 g/dL (3.4-5.0); DIRECT BILIRUBIN 0.2 mg/dL (<0.1-0.3); TOTAL BILIRUBIN 0.5 mg/dL (<0.1-1.0); TOTAL PROTEIN 8.6 g/dL (6.4-8.2)
[2018-03-16 22:30] VITALS: BP 112/76
== END 2018-03-16 22:30 | disposition home or self-care (01) ==
LOC: ER 19:47
PROVIDERS: Student in an Organized Health Care Education/Training Program
DX: G62.9 Polyneuropathy, unspecified (principal); I10 Essential (primary) hypertension; J45.909 Unspecified asthma, uncomplicated; K21.9 Gastro-esophageal reflux disease without esophagitis; E89.0 Postprocedural hypothyroidism; Z90.49 Acquired absence of other specified parts of digestive tract; F17.210 Nicotine dependence, cigarettes, uncomplicated; Z88.1 Allergy status to other antibiotic agents

== ENCOUNTER 2018-04-06 09:58 | Inpatient (IN) | payer OTHER ==
[~2018-04-06] VITALS: Ht 170.2 cm; Wt 78.8 kg
[2018-04-06 10:02] VITALS: BP 138/98
--- NOTE | 2018-04-06 10:48 | EKG ---
[address] [place] [address] ELECTROCARDIOGRAM REPORT Name: JUANA VALADEZ V Room #: [facility]#: [id number] Admission: 04/06/18 Attend Phys: Discharge: Date of : 75 Report #: [id number] THIS REPORT FOR: //name// [facility] ED Test Date: 2018-04-06 Test Time: 10:09:21 Pat Name: JUANA VALADEZ Department: Room: Gender: F Clinical Unit Coordinator: [place] : 1975 Requested By: Rubén Vitale Order Number: [id number] MD: Crow Barros Measurements Intervals [place] Rate: 92 P: 26 PA: 170 QRS: 38 QRSD: 94 T: 28 QT: 362 QTc: 448 Interpretive Statements Sinus rhythm Compared to ECG 03/23/2017 21:16:20 No significant changes Electronically Signed On 04-06-2018 10:47:48 OPERATIONAL RISK MANAGER by Crow Barros [email or web address] <ELECTRONICALLY SIGNED> By: Crow Barros MD 04/06/18 1047 1009 1009 Crow Barros MD /EPI
[2018-04-06 11:20] LABS: ABSOLUTE NEUTROPHILS 5.2 thou/uL (1.4-8.2); BASOPHILS 0.7 % (0.0-2.0); EOSINOPHILS 3.6 % (0.0-3.0); HEMATOCRIT 33.5 % (37.0-47.0); HEMOGLOBIN 11.7 gm/dL (12.0-15.0); LYMPHOCYTES 35.2 % (24.0-44.0); MCHC 34.9 g/dL (28.0-37.0); MCV 100.4 fL (80.0-100.0); MONOCYTES 6.2 % (1.0-8.0); PLATELET COUNT 194 thou/uL (150-400); POLYS 54.3 % (36.0-66.0); RBC 3.33 mil/uL (4.20-5.00); RDW 14.6 % (10.5-14.5); WBC 9.6 thou/uL (4.0-11.0)
[2018-04-06 11:25] LABS: ANION GAP 10 mmol/L (7-16); BUN 16 mg/dL (7-18); CALCIUM 10.1 mg/dL (8.5-10.1); CHLORIDE 101 mmol/L (98-107); CO2 25 mmol/L (21-32); CREATININE 1.4 mg/dL (0.6-1.0); GLUCOSE 85 mg/dL (74-106); POTASSIUM 4.2 mmol/L (3.5-5.1); SODIUM 136 mmol/L (136-145)
[2018-04-06 11:33] LABS: ALBUMIN 3.5 g/dL (3.4-5.0); LIPASE 640 U/L (73-393); SGOT 29 U/L (15-37); SGPT 24 U/L (30-65); TOTAL BILIRUBIN 0.4 mg/dL (<0.1-1.0); TOTAL PROTEIN 8.6 g/dL (6.4-8.2); TROPONIN-I <0.06 ng/mL (<0.06)
[2018-04-06 13:56] VITALS: BP 113/80
[2018-04-06 14:56] VITALS: BP 103/66
--- NOTE | 2018-04-06 15:01 | NUR ---
ADMITTED FROM ER UNDER 'S CARE. AXOX4. ADMIT DX.PANCREATITIS. GI CONSULTED. PAIN AND NAUSEA WAS TX IN ER, SO COMPLAINT AT THIS TIME. IVF STRATED PER MD ORDER. BREATHING REGULAR AND EVEN. NO S/S ACUTE DISTRESS NOTED OR REPORTED AT THIS TIME. DENIES ANY CHEST PAIN AT THIS TIME. ADMITTED FOR M/S. WILL CONT TO MONITOR FOR ANY CHANGES IN CONDITION.
[2018-04-06 19:15] VITALS: BP 95/67
[2018-04-07 04:45] VITALS: BP 85/50
--- NOTE | 2018-04-07 05:22 | NUR ---
Pt. rested quietly during the night when checked on during frequent rounds. She c/o pain in her feet and has been given pain meds (see emar) with some relief noted. Up to the bathroom with stand by assistance.
[2018-04-07 06:12] LABS: ALBUMIN 2.9 g/dL (3.4-5.0); CALCIUM 9.3 mg/dL (8.5-10.1); CREATININE 1.4 mg/dL (0.6-1.0); TOTAL BILIRUBIN 0.6 mg/dL (<0.1-1.0); TOTAL PROTEIN 7.1 g/dL (6.4-8.2)
[2018-04-07 08:07] VITALS: BP 93/67
--- NOTE | 2018-04-07 14:35 | NUR ---
ASSUMED CARE AT 0700. AXOX4. PERSISTENT PAIN IN HANDS/FEET. NO C/O CHEST PAIN AT THIS TIME. REPORTED TO ONCE AGAIN ABOUT THE HANDS/FEET. MD WILL REVIEW THE CHART. TOLERATED SOFT/FIBER RESTRICTED DIET VERY WELL. EVALUATION DONE BY , GI AWATING NOTE INPUT. NO S/S ACUTE DISTRESS NOTED OR REPORTED AT THIS TIME. WILL CONT TO MONITOR ANY CHANGES IN CONDITION.
[2018-04-07 14:48] VITALS: BP 91/65
[2018-04-07 19:15] VITALS: BP 100/69
--- NOTE | 2018-04-07 22:12 | NUR ---
ASSUMED CARE OF PATIENT AROUND 1900. PATIENT IN GREAT AMOUNT OF PAIN IN HANDS AND FEET - WHICH IS THE PRIMARY REASON FOR HER VISIT TO THE ER. IT HAS KEPT HER FROM SLEEPING, COMPLETING ACTIVITIES OF DAILY LIVING, AND HAS GREATLY LIMITED HER ABILITY TO USE HER HANDS. PATIENT STATES PAIN HAS BEEN ADDRESSED BY PRIMARY CARE DOCTOR BUT HER REQUEST FOR A NEUROLOGIST REFERRAL AT [facility] HAS BEEN A LENGTHY PROCESS WITH NO IMMEDIATE SOLUTION. POLY AREA SUPERVISOR RECOMMENDS TURNING ISSUE OVER TO HOSPITALIST FOR THEM TO DECIDE. WILL REPORT TO DAY RN. ENCOURAGED PATIENT TO SPEAK TO HOSPITALIST IN AM WELL. PATIENT TAKES GABAPENTIN AT HOME, STARTED 3 WEEKS AGO AT 100 MG ONCE A DAY, NOW INCREASED TO 100 MG TID. RESTARTED MEDICATION TO NIGHT PER KAMALJIT FARMER. PROTONIX RESTARTED AND ADMINISTERED FIRST DOSE. PT C/O HEART BURN, TUMS ADMINISTERED. MORPHINE ADMINISTERED FOR BILAT HAND/FOOT PAIN, WILL ADMINISTER HYDROCODONE. PATIENT REQUESTED STOOL SOFTENER, BISACODYL PO ADMINISTERED. TRAZODONE STARTED FOR SLEEP AID. PATIENT IS PROGRESSING TOWARD GOALS, WILL CONTINUE TO MONITOR PAIN LEVELS AND EFFECTIVENESS OF MEDICATIONS.
[2018-04-08 04:08] VITALS: BP 92/61
[2018-04-08 08:22] VITALS: BP 92/57
[2018-04-08] MEDS ORDERED: OXYCODONE HCL 55 MG PO (08:33)
[2018-04-08] MEDS ORDERED: LYRICA 50 MG50 MG PO (08:33)
[2018-04-08 11:02] VITALS: BP 92/57
--- NOTE | 2018-04-08 11:14 | NUR ---
ASSUMED PT CARE AT 0700H. PT A&O X4. PT STATES PAIN ON HANDS AND FEET. CONSULT WITH PHYSICIAN. PT DC TODAY ON [facility] FOR NEUROPATHY. PT ALSO STATES R ABD PAIN. HEALTH CARE PROVIDER (VINAY) NOTIFIED. PRN MED GIVEN. PT CURRENTLY DC HOME WITH DAD. PT WILL F/U OUT PT WITH DR. VARGAS AT [facility].
--- NOTE | 2018-04-12 10:10 | HC ---
[facility] [place] [address] CONSULTATION Name: JUANA VALADEZ V Room #: 461-P [facility] IN M.R.#: [id number] Admission: 04/06/18 Attend Phys: Adryan Tyler MD Discharge: 04/08/18 Date of : 75 Report #: [id number] THIS REPORT FOR: //name// CC: Adryan VIGIL HISTORY OF PRESENT ILLNESS: The patient is a very pleasant 42-year-old -[place] Islander female who presents with a remote history of alcohol use with epigastric pain that started in the chest. This was associated with nausea and vomiting. She is followed at [facility] on the [place]. She recently had a study that revealed gastroparesis. She has had Reglan in the past, which has helped for suspected gastroparesis. PAST MEDICAL HISTORY: Otherwise notable for cholecystectomy, asthma, cirrhosis, neuropathy, tubal ligation, kidney stones, reflux, hypertension, chronic anemia. SOCIAL HISTORY: She denies alcohol consumption currently, she does smoke. 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 MEDICATIONS AT HOME: Vitamins, Aldactone, Lasix, pantoprazole, Zofran, it says oxycodone, but she denies narcotic pain medications at home. FAMILY HISTORY: Reviewed otherwise. REVIEW OF SYSTEMS: Negative for weight loss, weakness or fatigue. He denies head, eyes, ears, nose or throat complaints. She denies chest pain, chest palpitation, chest pressure, cough, shortness of breath, wheezing, genitourinary, musculoskeletal or neuropsychiatric complaints otherwise. PHYSICAL EXAMINATION: VITAL SIGNS: Afebrile, vital signs stable. HEENT: Nonicteric. NECK: No JVD, thyromegaly or bruits. CARDIOVASCULAR: Regular. LUNGS: Clear. ABDOMEN: Soft, nondistended, nontender except for in the epigastrium. No stigmata of chronic liver disease. No abnormal masses or bruits. No rebound or guarding. EXTREMITIES: No clubbing, cyanosis or edema. NEUROLOGIC: Grossly intact. RECTAL: Deferred. PERTINENT LABORATORY DATA: Include serum chemistry: Creatinine 1.4, normal LFTs. She had a lipase of 640, which is now 255, normal; total protein 8.6, albumin 3.5. Hemoglobin 11.7, white count 9.6, platelet count 194. She had an INR in October of 1.1. She had a triglyceride in on 03/29/2017 of 103 and a cholesterol of 107. CT abdomen and pelvis reveals mild nodularity of the liver, [address] [address] CONSULTATION Name: JUANA VALADEZ V Room #: 461-[facility] IN ..#: [id number] Admission: 04/06/18 Attend Phys: Adryan Tyler MD Discharge: 04/08/18 Date of : 75 Report #: [id number] no evidence of pancreatic mass. IMPRESSION: In summary, the patient carries a diagnosis of alcoholic liver disease and cirrhosis, presents with chest pain and epigastric pain and mild elevation of her pancreatic enzymes, which have now normalized. She may have pancreatitis as a result of some mild chronic pancreatic injury from years of alcohol abuse, which she has discontinued for now 6 months. I have encouraged her to continue this. At this point, I would advance her diet and observe, checking her lipase tomorrow. Perhaps an endoscopic ultrasound will be reasonable to assess for chronic pancreatitis as an outpatient. There is no evidence of dilated ducts or pancreatic mass and her triglyceride levels have been okay in the past. I appreciate the opportunity to participate in her care. <ELECTRONICALLY SIGNED> By: Antonio Myles MD 04/12/18 1010 1127 38 Jonathan Negrete MD /nt
== END 2018-04-08 11:11 | disposition home or self-care (01) | DRG 439 ==
LOC: ER 09:58 → EROBS 12:12 → 4W 14:41
PROVIDERS: Emergency Medicine; ADMIT Hospitalist
DX: K85.90 Acute pancreatitis without necrosis or infection, unspecified (principal); E46 Unspecified protein-calorie malnutrition; K76.6 Portal hypertension; K70.30 Alcoholic cirrhosis of liver without ascites; M62.50 Muscle wasting and atrophy, not elsewhere classified, unspecified site; N20.0 Calculus of kidney; K31.84 Gastroparesis; K31.89 Other diseases of stomach and duodenum; F10.10 Alcohol abuse, uncomplicated; K21.9 Gastro-esophageal reflux disease without esophagitis; D53.9 Nutritional anemia, unspecified; F32.9 Major depressive disorder, single episode, unspecified; E89.0 Postprocedural hypothyroidism; J45.909 Unspecified asthma, uncomplicated; I10 Essential (primary) hypertension; G62.9 Polyneuropathy, unspecified; F17.210 Nicotine dependence, cigarettes, uncomplicated; Z79.899 Other long term (current) drug therapy; Z88.1 Allergy status to other antibiotic agents; Z90.49 Acquired absence of other specified parts of digestive tract; Z68.27 Body mass index [BMI] 27.0-27.9, adult
CPT/HCPCS: 10045; 10047

== ENCOUNTER 2018-08-06 16:45 | Emergency (ER) | payer OTHER ==
[~2018-08-06] VITALS: Ht 170.2 cm; Wt 91.2 kg
[~2018-08-06 16:45] MED LIST changes: +LYRICA 50 MG50 MG PO
[2018-08-06 17:05] LABS: URINE BILIRUBIN NEGATIVE (Negative); URINE BLOOD NEGATIVE (Negative); URINE CLARITY CLEAR; URINE COLOR YELLOW; URINE GLUCOSE-RANDOM* NEGATIVE (Negative); URINE KETONES NEGATIVE (Negative); URINE LEUKOCYTES NEGATIVE (Negative); URINE NITRITE NEGATIVE (Negative); URINE PROTEIN (DIPSTICK) NEGATIVE (Negative); URINE SPECIFIC GRAVITY <= 1.005 (1.005-1.035); URINE UROBILINOGEN 0.2 E.U./dl (0.2-1.0)
[2018-08-06 17:26] LABS: ABSOLUTE NEUTROPHILS 6.1 thou/uL (1.4-8.2); BASOPHILS 0.6 % (0.0-2.0); EOSINOPHILS 1.4 % (0.0-3.0); HEMATOCRIT 40.8 % (37.0-47.0); HEMOGLOBIN 14.3 gm/dL (12.0-15.0); LYMPHOCYTES 38.2 % (24.0-44.0); MCH 34.7 pg (26.0-34.0); MCHC 35.1 g/dL (28.0-37.0); MCV 98.8 fL (80.0-100.0); MONOCYTES 4.8 % (1.0-8.0); PLATELET COUNT 165 thou/uL (150-400); RBC 4.13 mil/uL (4.20-5.00); RDW 13.8 % (10.5-14.5); WBC 11.2 thou/uL (4.0-11.0)
[2018-08-06] MEDS ORDERED: NAPROSYN500 MG PO (19:01)
[2018-08-06 19:08] LABS: CALCIUM 9.9 mg/dL (8.5-10.1); CREATININE 1.8 mg/dL (0.6-1.0); DIRECT BILIRUBIN 0.3 mg/dL (<0.1-0.3); POTASSIUM 4.3 mmol/L (3.5-5.1); TOTAL BILIRUBIN 0.7 mg/dL (<0.1-1.0)
[2018-08-06] MEDS ORDERED: TRAMADOL 50 MG50 MG PO (19:32)
[2018-08-06] MEDS ORDERED: ZOFRAN ODT4 MG DISSOLVE (19:32)
[2018-08-06 19:47] VITALS: BP 108/73
== END 2018-08-06 19:47 | disposition home or self-care (01) ==
LOC: ER 16:45
PROVIDERS: Emergency Medicine; Physician Assistant
DX: N28.9 Disorder of kidney and ureter, unspecified (principal); R10.11 Right upper quadrant pain; R11.0 Nausea; J45.909 Unspecified asthma, uncomplicated; I10 Essential (primary) hypertension; K21.9 Gastro-esophageal reflux disease without esophagitis; E03.9 Hypothyroidism, unspecified; G62.9 Polyneuropathy, unspecified; F17.210 Nicotine dependence, cigarettes, uncomplicated; Z88.1 Allergy status to other antibiotic agents; Z87.19 Personal history of other diseases of the digestive system; Z87.440 Personal history of urinary (tract) infections; Z98.51 Tubal ligation status; Z98.890 Other specified postprocedural states

== ENCOUNTER 2019-03-03 13:31 | Emergency (ER) | payer OTHER ==
[~2019-03-03] VITALS: Ht 170.2 cm; Wt 99.8 kg
[~2019-03-03 13:31] MED LIST changes: +NAPROSYN500 MG PO; +ZOFRAN ODT4 MG DISSOLVE
[2019-03-03] MEDS ORDERED: DULOXETINE HCL60 MG PO (14:01)
[2019-03-03 14:24] LABS: URINE BILIRUBIN NEGATIVE (Negative); URINE BLOOD 2+ (Negative); URINE CLARITY SL CLOUDY; URINE COLOR YELLOW; URINE GLUCOSE-RANDOM* NEGATIVE (Negative); URINE KETONES NEGATIVE (Negative); URINE LEUKOCYTES-REFLEX 3+ (Negative); URINE NITRITE-REFLEX NEGATIVE (Negative); URINE PROTEIN (DIPSTICK) NEGATIVE (Negative)
[2019-03-03 14:31] LABS: BASOPHILS 0.8 % (0.0-2.0); EOSINOPHILS 1.8 % (0.0-3.0); HEMATOCRIT 44.6 % (37.0-47.0); HEMOGLOBIN 15.5 gm/dL (12.0-15.0); LYMPHOCYTES 31.6 % (24.0-44.0); MCH 36.8 pg (26.0-34.0); MCHC 34.7 g/dL (28.0-37.0); MCV 106.2 fL (80.0-100.0); MONOCYTES 6.5 % (1.0-8.0); PLATELET COUNT 163 thou/uL (150-400); POLYS 59.3 % (36.0-66.0); RDW 14.8 % (10.5-14.5); WBC 10.1 thou/uL (4.0-11.0)
[2019-03-03 14:38] LABS: CALCIUM 10.7 mg/dL (8.5-10.1); CREATININE 1.8 mg/dL (0.6-1.0); POTASSIUM 4.6 mmol/L (3.5-5.1)
[2019-03-03 14:54] LABS: CASTS None Seen /LPF (None Seen); SQUAMOUS >10 Many /LPF (0-3)
[2019-03-03 14:55] LABS: URINE WBC-REFLEX 6-15 Few /HPF (0-5)
[2019-03-03 14:56] LABS: BACTERIA-REFLEX 1-9 Few /HPF (None Seen); CRYSTALS None Seen /LPF (None Seen); URINE RBC 0-2 Rare /HPF (0-2)
[2019-03-03 17:10] VITALS: BP 134/90
== END 2019-03-03 17:12 | disposition home or self-care (01) ==
LOC: ER 13:31
PROVIDERS: Emergency Medicine; Physician Assistant
DX: A59.9 Trichomoniasis, unspecified (principal); F17.210 Nicotine dependence, cigarettes, uncomplicated; M54.5 Low back pain; R30.9 Painful micturition, unspecified; J45.909 Unspecified asthma, uncomplicated; I10 Essential (primary) hypertension; K21.9 Gastro-esophageal reflux disease without esophagitis; G62.9 Polyneuropathy, unspecified; E89.0 Postprocedural hypothyroidism; Z87.440 Personal history of urinary (tract) infections; Z90.89 Acquired absence of other organs; Z98.51 Tubal ligation status; Z88.1 Allergy status to other antibiotic agents

== ENCOUNTER 2019-10-15 12:38 | Emergency (ER) | payer OTHER ==
[~2019-10-15] VITALS: Ht 170.2 cm; Wt 99.8 kg
[~2019-10-15 12:38] MED LIST changes: +DULOXETINE HCL60 MG PO
[2019-10-15] MEDS ORDERED: ZOHYDRO ER10 M1 PO (14:17)
[2019-10-15 15:01] VITALS: BP 117/91
== END 2019-10-15 15:03 | disposition home or self-care (01) ==
LOC: ER 12:38
DX: S93.402A Sprain of unspecified ligament of left ankle, initial encounter (principal); M25.462 Effusion, left knee; I10 Essential (primary) hypertension; J45.909 Unspecified asthma, uncomplicated; K21.9 Gastro-esophageal reflux disease without esophagitis; F17.210 Nicotine dependence, cigarettes, uncomplicated; Z90.49 Acquired absence of other specified parts of digestive tract; Z79.899 Other long term (current) drug therapy; Z88.1 Allergy status to other antibiotic agents; W10.9XXA Fall (on) (from) unspecified stairs and steps, initial encounter; Y93.89 Activity, other specified; Y92.89 Other specified places as the place of occurrence of the external cause; Y99.8 Other external cause status